=== PATIENT | female | born 1990 | race Caucasian/White ===

== ENCOUNTER 2020-05-17 11:25 | Inpatient (IN) | payer OTHER ==
[2020-05-17 13:00] VITALS: BMI 30.2
[2020-05-17 13:11] LABS: BASO % 0.3 % (0-2.0); EOS % 0.1 % (0-4.5); HEMOGLOBIN 12.2 GM/dL (10.7-15.3); LYMPH % 8.5 % (8-40); MCH 28.7 pg (25.7-33.7); MCHC 33.1 g/dl (32.0-36.0); MEAN CELL VOLUME 86.7 fl (80-96); MEAN PLT VOLUME 10.7 fl (7.5-11.1); MONO % 4.1 % (3.8-10.2); PLATELET COUNT 153 K/MM3 (134-434); RBC 4.27 M/mm3 (3.60-5.2)
[2020-05-17 13:16] LABS: INR 0.89 (0.83-1.09); PROTHROMBIN TIME (PATIENT) 10.5 SEC (9.7-13.0)
[2020-05-17 13:19] LABS: ACTIVATED PTT 26.1 SECONDS (25.2-36.5)
[2020-05-17 13:32] LABS: BLOOD UREA NITROGEN 10.5 mg/dL (7-18); CALCIUM 8.2 mg/dL (8.5-10.1); CREATININE 0.5 mg/dL (0.55-1.3); POTASSIUM 4.2 mmol/L (3.5-5.1)
[2020-05-17] MEDS ORDERED: FENTANYL/BUPIVACAINE/NS/PF - PCEA - 50 ML DISP.SYRIN EP ONE ×4 (13:49→22:06)
[2020-05-17] MEDS ORDERED: FENTANYL/BUPIVACAINE/NS/PF - PCEA - 50 ML DISP.SYRIN EP SCH (14:25)
[2020-05-17] MEDS ORDERED: NALOXONE HCL 0.4 MG/ML VIAL IVPUSH PRN (14:31)
--- NOTE | 2020-05-17 18:48 | HP ---
Past Medical History - Admission Chief Complaint: active labor pain History Source: Patient Limitations to Obtaining History: No Limitations - Past Medical History TRANSITION LEAD: No: Alzheimer's, CVA, Dementia, Migraine, Multiple Sclerosis, Peripheral Neuropathy, Parkinson's, Seizure, Syncope, TIA, Vertigo, Other Cardiovascular: No: AFIB, Aneurysm, Aortic Insufficiency, Aortic Stenosis, CAD, CHF, Deep Vein Thrombosis, HTN, Hyperlipdemia, PR, Mitral Insufficiency, Mitral Stenosis, Murmur, Pulmonary Hypertension, Other Pulmonary: No: Asthma, Bronchitis, Cancer, COPD, O2 Dependent, Pneumonia, Previously Intubated, Pulmonary Embolus, Pulmonary Fibrosis, Sleep Apnea, Other Gastrointestinal: No: Ascites, Cancer, Constipation, Crohn's Disease, Diverticulitis, Diverticulosis, Esophageal Varices, Gastritis, GERD, GI Bleed, Hemorrhoids, Hiatal Hernia, Inflamatory Bowel Disease, Irritable Bowel Disease, Pancreatitis, Peptic Ulcer Disease, Ulcerative Colitis, Other Hepatobiliary: No: Cirrhosis, Cholelithiasis, Cholecystitis, Choledocholit hiasis, Hepatitis A, Hepatitis B, Hepatitis C, Other Renal/: No: Renal Failure, Renal Inusuff, BPH, Cancer, Hematuria, Hemodialysis, Neurogenic Bladder, Renal Calculi, UTI, Other Reproductive: No: Ectopic , Endometriosis, Fibroids, PID, Polycystic Ovary Syndrome, Postmenopausal, Other ...: 1 ...Para: 0 ...Term: 0 ...: 0 ...Spon : 0 ...Induced : 0 ...Living Children: 0 ...Multiple Gestation: 0 ...LMP: 08/11/19 ... Weeks Gestation by Dates: 40.0 ...EDC by Dates: 05/17/20 Heme/Onc: No: Anemia, B12 Deficiency, Bleeding Disorder, Cancer, Current Chemotherapy, Current Radiation Therapy, Hemochromatosis, Hypercoaguable State, Myeloproliferative Synd, Sickle Cell Disease, Sickle Cell Trait, Thrombocytopenia, Other Infectious Disease: No: AIDS, C-Diff, Herpes Zoster, HIV, MRSA, STD's, Tuberculosis, VREF, Other Psych: No: Addictions, Anxiety, Bipolar, Depression, Panic, Psychosis, Schizophrenia, Other Musculoskeletal: No: Bursitis, Chronic low back pain, Hemiparesis, Hemiplegia, Osteoarthritis, Paraplegia, Other Rheumatology: No: Fibromyalgia, Gout, Lupus, Rheumatoid Arthritis, Sarcoidosis, Vasculitis, Other ENT: No: Allergic Rhinitis, Sinusitis, Other Endocrine: No: [place]'s Disease, [place]'s Disease, Diabetes Insipidus, Diabetes Mellitus, Hyperparathyroidism, Hyperthyroidism, Hypothyroidism, Osteopenia, SIADH, Other Dermatology: No: Basal Cell, Cellulitis, Eczema, Melanoma, Psoriasis, Squamous Cell, Other - Past Surgical History Past Surgical History: No: None, AAA Repair, AICD, Amputation, Appendectomy, Arthrosocopy, AV Fistula/Graft, Bariatric Surgery, Breast Biopsy, Bypass, CABG, Carotid Endarterectomy, Cataract Removal, Cholecystectomy, Colectomy, Colonoscopy, Colostomy, Craniotomy, , Cystectomy, Hernia Repair, Hysterectomy, Ileal Conduit, Ileosotomy, Joint Replacement, Kidney Transplant, Laminectomy, Liver Transplant, Mastectomy, Nephrectomy, Oopherectomy, Orchiectomy, Permanent Pacemaker, Prostatectomy, Splenectomy, Stent, Thoracotomy, TURP, Tonsillectomy, Tubal Ligation, Upper Endoscopy, Valve Replacement, Vasectomy, Vein Stripping/Ligation Hx Myomectomy: No Hx Transabdominal Cerclage: No - Advance Directives Advance Directives: Yes: Living Will - Smoking History Smoking history: Never smoked Have you smoked in the past 12 months: No - Alcohol/Substance Use Hx Alcohol Use: No History of Substance Use: reports: None - Social History Usual Living Arrangement: Yes: With Significant Other Do you think of yourself as: Straight/Heterosexual ADL: Independent History of Recent Travel: No Home Medications - Allergies Allergies/Adverse Reactions: Allergies Allergy/AdvReac Type Severity Reaction Status Date / Time No Known Allergies Allergy Verified 05/17/20 12:25 - Home Medications Home Medications: Ambulatory Orders Pnv No.95/Ferrous Fum/Folic AC [ Formula] 1 each PO DAILY 05/17/20 Family Medical History Family History: Denies Review of Systems - Review of Systems Constitutional: reports: No Symptoms Eyes: reports: No Symptoms HENT: reports: No Symptoms Neck: reports: No Symptoms Cardiovascular: reports: No Symptoms Respiratory: reports: No Symptoms Gastrointestinal: reports: No Symptoms Genitourinary: reports: No Symptoms Breasts: reports: No Symptoms Reported Musculoskeletal: reports: No Symptoms Integumentary: reports: No Symptoms Neurological: reports: No Symptoms Endocrine: reports: No Symptoms Hematology/Lymphatic: reports: No Symptoms Psychiatric: reports: No Symptoms Physical Exam - Maternity Vital Signs: Vital Signs Temperature 98.2 F 05/17/20 18:00 Pulse Rate 78 05/17/20 16:30 Respiratory Rate 18 05/17/20 16:30 Blood Pressure 122/75 05/17/20 16:15 O2 Sat by Pulse Oximetry (%) 100 05/17/20 16:30 Constitutional: Yes: Well Nourished, No Distress, Calm Eyes: Yes: WNL, Conjunctiva Clear, EOM Intact HENT: Yes: WNL, Atraumatic, Normocephalic Neck: Yes: WNL, Supple, Trachea Midline Cardiovascular: Yes: WNL, Regular Rate and Rhythm Lungs: Clear to auscultation Breast(s): Yes: WNL - Abdominal Exam/OB Fundal Height: 40 Number of Fetuses: Single Presentation: Vertex Contractions: Yes Regularity: Regular Intensity: Mod/Strong Monitor Mode: External Heart Rate (range): 150 Heart Rate Location: [facility] Category: I Accelerations: Uniform Decelerations: None - Vaginal Exam/OB Vaginal Bleeding: No Speculum Exam: No Dilatation (cm): 3 Effacement (%): 70 Amniotic Membrane Status: Leaking Presentation: Vertex/Position Station: -1 - Physical Exam Musculoskeletal: Yes: WNL Extremities: Yes: WNL Edema: Yes Edema: LUE: 1+, RUE: 1+, LLE: 1+, RLE: 1+ Integumentary: Yes: WNL Deep Tendon Reflex Grade: Normal +2 ...Motor Strength: WNL Psychiatric: Yes: WNL, Alert, Oriented - Labs Lab Results: CBC, BMP 05/17/20 12:45 05/17/20 12:45 Hemorrhage Risk Assessment - Risk Factors Medium Risk Factors: Yes: None High Risk Factors: Yes: None Risk Score: 1 Risk Level: Medium Risk Assessment/Plan for laboring, asking for epidural
--- NOTE | 2020-05-17 18:49 | PN ---
Progress Note (short form) - Note Progress Note: 3 pm, nst reactive, uc q 5 min, 3 cm, 70%, -1, will give epidural
--- NOTE | 2020-05-17 18:50 | PN ---
Progress Note (short form) - Note Progress Note: 630 pm, 4 cm, forbag membrane ruptured, 70%,-1, continue laboring w epidural, and start pitocin
[2020-05-17] MEDS ORDERED: OXYTOCIN 30 UNITS in 0.9% NS 30 UNIT/500 ML INFUS.BAG IVPB SCH (19:00)
[2020-05-17] MEDS ORDERED: ELECTROLYTE-148 SOLN 1,000 ML IV SCH (19:15)
[2020-05-17] MEDS ORDERED: PCA PUMP NR ONE (19:31)
[2020-05-17] MEDS ORDERED: OXYTOCIN 30 UNITS in 0.9% NS 30 UNIT/500 ML INFUS.BAG IVPB ONE (20:00)
[2020-05-17] MEDS ORDERED: BUPIVACAINE HCL/PF 0.25% (2.5MG/ML) 10 ML VIAL ONE (20:21)
[2020-05-17] MEDS ORDERED: LIDO 2%/EPI 1:200000 PRESRVFRE (20 ML SDVIAL) ONE (22:29)
--- NOTE | 2020-05-17 22:34 | PN ---
Progress Note (short form) - Note Progress Note: 1030 pm, still 3 to 4 cm, -1,70%, no change of cervix, still no change, epidural is not working, pt c/o pain, will proceed to c s , for f t progress,
[2020-05-17] MEDS ORDERED: ONDANSETRON 4 MG/2 ML VIAL IVPUSH PRN (22:46)
[2020-05-18] MEDS ORDERED: morphine SULFATE/PF 0.5 MG/ML (2cc Syringe - QUVA) ONE (00:17)
[2020-05-18] MEDS ORDERED: ceFAZolin SODIUM 1 GM VIAL ONE (00:33)
[2020-05-18] MEDS: OXYTOCIN 20 UNITS in 0.9% NS 20 UNIT/1,000 ML INFUS.BAG IV SCH ×2 (00:50→08:00)
--- NOTE | 2020-05-18 01:24 | PN ---
Progress Note (short form) - Note Progress Note: I assisted Dr. Corbett at c/section for mthe entirety of the case.
[2020-05-18] MEDS ORDERED: CITRIC ACID/SODIUM CITRATE 30 ML UNIT-DOSE CUP PO ONE (01:43)
--- NOTE | 2020-05-18 01:43 | OP ---
Operative Note - Note: Operative Date: 05/18/20 Pre-Operative Diagnosis: f t progress Operation: primary lt c s Findings: op Post-Operative Diagnosis: Same as Pre-op Surgeon: Lyndon Corbett Oil Producer: Bryan Byrne Anesthesiologist/DRIER TENDER: Zakia Barrera Anesthesia: Epidural Estimated Blood Loss (mls): 600 (op, no complications ) Operative Report Dictated: Yes
[2020-05-18] MEDS ORDERED: METHYLERGONOVINE MALEATE 0.2 MG/1 ML AMP IM PRN (01:44)
[2020-05-18] MEDS ORDERED: SENNOSIDES/DOCUSATE COMBO (SENNA PLUS) TABLET (UD) PO PRN (01:44)
[2020-05-18] MEDS ORDERED: oxyCODONE HCL 5 MG TABLET PO PRN ×2 (01:44)
[2020-05-18] MEDS ORDERED: OXYTOCIN 20 UNITS in 0.9% NS 20 UNIT/1,000 ML INFUS.BAG IV ONE (03:06)
[2020-05-18] MEDS: IBUPROFEN 800 MG/8 ML IJ IVPB PRN ×2 (08:44→19:08)
[2020-05-18] MEDS: PRENATAL VITAMINS W/ FOLIC ACID TABLET (FP) PO SCH (10:00)
[2020-05-19] MEDS ORDERED: BISACODYL 10 MG SUPP.RECT RC PRN (01:44)
[2020-05-19] MEDS: ACETAMINOPHEN 325 MG TABLET (FP) PO PRN ×3 (07:57→21:04)
[2020-05-19] MEDS: SIMETHICONE 80 MG TAB.CHEW (FP) PO PRN ×3 (07:57→21:04)
[2020-05-19] MEDS: IBUPROFEN 600 MG TABLET (FP) PO PRN ×3 (07:58→21:05)
[2020-05-19 08:45] LABS: BASO % 0.3 % (0-2.0); EOS % 0.5 % (0-4.5); HEMATOCRIT 33.4 % (32.4-45.2); LYMPH % 11.5 % (8-40); MCH 28.4 pg (25.7-33.7); MCHC 32.9 g/dl (32.0-36.0); MEAN CELL VOLUME 86.5 fl (80-96); MEAN PLT VOLUME 9.9 fl (7.5-11.1); MONO % 6.7 % (3.8-10.2); PLATELET COUNT 157 K/MM3 (134-434); RBC 3.86 M/mm3 (3.60-5.2); RDW 13.4 % (11.6-15.6); WHITE BLOOD COUNT 14.1 K/mm3 (4.0-10.0)
[2020-05-19] MEDS: PRENATAL VITAMINS W/ FOLIC ACID TABLET (FP) PO SCH (09:15)
--- NOTE | 2020-05-19 13:16 | PATH ---
Surgical Pathology Report Patient Name: DEVON WELDON [facility]. Rec. #: [id number] /Age/Gender: 1990 (Age: 29) / F Account: [id number] Location: [facility] OBS/DEPUTY COURT CLERK Taken: 05/18/2020 Received: 05/18/2020 Reported: 05/19/2020 Physicians: Lyndon Corbett MD Specimen(s) Received PLACENTA Clinical History , 40 weeks, failure to progress Final Diagnosis PLACENTA: THIRD TRIMESTER PLACENTA WITH MILD ACUTE CHORIOAMNIONITIS AND SUBCHORIONIC FIBRIN DEPOSITION. TRIVASCULAR CORD. Electronically Signed Ly Pang M.D. Gross Description The specimen is received fresh labeled placenta and is a 370 gram, 17.5 x 13.5 x 2.2 cm. placenta with attached membranes and umbilical cord. The attached membranes are kennedy, translucent with focal opacities and insert marginally. The umbilical cord measures 11.5 cm. in length and averages 1 cm. in diameter. The cord inserts eccentrically, 1 cm. to the nearest margin. No true knots or strictures are identified. Cut surface of the umbilical cord reveals 3 vessels. The surface is vu-blue with minimal fibrin deposition and appropriate caliber vessels. The maternal surface is red-brown with focal defects. Sectioning reveals red-brown, spongy parenchyma. No lesions are identified. Billiard Table Assembler sections are submitted in three cassettes as follows: 1- membrane rolls and umbilical cord; 2-3- full thickness sections of placenta. /05/18/2020 saudi/05/18/2020
--- NOTE | 2020-05-19 13:50 | PN ---
Post Progress Note Post Day: 1 Type of Delivery: Primary C/S Vital Signs: Vital Signs Temperature 99.2 F 05/19/20 10:00 Pulse Rate 91 H 05/19/20 10:00 Respiratory Rate 20 05/19/20 10:00 Blood Pressure 121/67 05/19/20 10:00 O2 Sat by Pulse Oximetry (%) 99 05/18/20 02:05 Breast Exam: Yes: Soft Uterus: Yes: Fundus Firm, Fundus below umbilicus, Non-tender Incision: Yes: Dressing dry and intact, Sutures intact Abdomen/GI: Yes: Abdomen soft, Passing flatus, Tolerating PO Lochia: Yes: Serosa Lochia, amount: Small Extremities: Yes: Calves non-tender Perineum: Yes: Intact Activity: Ambulating - Labs Labs: CBC WBC 14.1 K/mm3 (4.0-10.0) H 05/19/20 07:40 RBC 3.86 M/mm3 (3.60-5.2) 05/19/20 07:40 Hgb 11.0 GM/dL (10.7-15.3) 05/19/20 07:40 Hct 33.4 % (32.4-45.2) 05/19/20 07:40 MCV 86.5 fl (80-96) 05/19/20 07:40 MCH 28.4 pg (25.7-33.7) 05/19/20 07:40 MCHC 32.9 g/dl (32.0-36.0) 05/19/20 07:40 RDW 13.4 % (11.6-15.6) 05/19/20 07:40 Plt Count 157 K/MM3 (134-434) 05/19/20 07:40 MPV 9.9 fl (7.5-11.1) 05/19/20 07:40 Absolute Neuts (auto) 11.4 K/mm3 (1.5-8.0) H 05/19/20 07:40 Neutrophils % 81.0 % (42.8-82.8) 05/19/20 07:40 Lymphocytes % 11.5 % (8-40) D 05/19/20 07:40 Monocytes % 6.7 % (3.8-10.2) 05/19/20 07:40 Eosinophils % 0.5 % (0-4.5) D 05/19/20 07:40 Basophils % 0.3 % (0-2.0) 05/19/20 07:40 Nucleated RBC % 0 % (0-0) 05/19/20 07:40 Other Findings, Remarks: doing well, dc pt home tomorrow
--- NOTE | 2020-05-19 13:52 | DS ---
Physical Exam-CERTIFIED MEDICAL ASSISTANT Vital Signs: Vital Signs Temperature 99.2 F 05/19/20 10:00 Pulse Rate 91 H 05/19/20 10:00 Respiratory Rate 20 05/19/20 10:00 Blood Pressure 121/67 05/19/20 10:00 O2 Sat by Pulse Oximetry (%) 99 05/18/20 02:05 Constitutional: Yes: Well Nourished, No Distress, Calm Eyes: Yes: WNL, Conjunctiva Clear, EOM Intact HENT: Yes: WNL, Atraumatic, Normocephalic Neck: Yes: WNL, Supple, Trachea Midline Cardiovascular: Yes: WNL, Regular Rate and Rhythm Respiratory: Yes: WNL, Regular, CTA Bilaterally Gastrointestinal: Yes: WNL, Normal Bowel Sounds, Soft ...Rectal Exam: Yes: WNL Renal/: Yes: WNL Pelvis: Yes: WNL External Genitalia: Yes: Normal Internal Exam Deferred: Yes Vaginal Exam: Yes: Normal Cervix: Yes: Normal Uterus: Yes: Normal ....Post : Yes: Uterus firm, Uterus non-tender Breast(s): Yes: WNL Musculoskeletal: Yes: WNL Extremities: Yes: WNL Edema: Yes Integumentary: Yes: WNL Wound/Incision: Yes: Clean/Dry, Well Approximated Neurological: Yes: WNL, Alert, Oriented ...Motor Strength: WNL Psychiatric: Yes: WNL, Alert, Oriented Labs: CBC, BMP 05/19/20 07:40 05/17/20 12:45 Delivery - Delivery Section: Primary Type of Anesthesia: Epidural, Spinal Episiotomy/Laceration: None EBL (cc): 600 Delivery, Single - Stages of Labor Date 1st Stage Initiatied: 05/17/20 Time 1st Stage Initiated: 07:00 Date 2nd Stage Initiated: 05/17/20 Time 2nd Stage Initiated: 14:30 Date of Delivery: 05/18/20 Time of Delivery: 00:46 Time Placenta Delivered: 00:47 - Condition of Psychiatric Rn/Art Editor Present: Yes Name: Breanne Jones Gender: Female Weight: 2.75 kg Position: OP Total Hours ROM (Hrs/Mins): 16 hrs 47 mins - 1 Minute Total Score: 9 5 Minutes Total Score: 9 - Feeding Plan Initial Plan: Exclusive throughout hospitalization Discharge Summary Problems reviewed: Yes Reason For Visit: RUPTURE OF MEMBRANE Procedures: Principal: primary lt c s Other Procedures: none Hospital Course: uneventful Condition: Good - Instructions Diet, Activity, Other Instructions: Physical activity Resume your normal everyday activity as tolerated no heavy lifting or exercise until seen by your surgeon. You may walk unlimited judith of and climb stairs. You may resume driving the car when you feel safe and comfortable behind the wheel. No sexual activity as instructed. Wound care If you have a bandage, leave it on, and keep dry for 48-72 hours. After that time discard the outer bandage. If they are tapes on the skin under the out of bandage leave them in place. They will peel off in the next 7 to 10 days. Do Not Peel them off. You may shower the day after surgery. If there are tapes present on the skin, you may shower over them. Diet There are no dietary restrictions. Eat healthy, high-fiber foods. Drink 6 to 8 glasses of liquid each day. This will assist in keeping your bowels are regular. Pain management You may take Tylenol or acetaminophen or Ibuprofen (for example, Motrin, Advil etc.) from my pain prescription medication is ordered should be taken as prescribed for moderate to severe pain. Call MD for any of the following: call dr minor for 2 weeks appointment Severe pain not relieved by medication Fever of 101 or higher Excessive bleeding or drainage on dressing Inability to urinate Disposition: HOME - Home Medications Comprehensive Discharge Medication List: Ambulatory Orders Pnv No.95/Ferrous Fum/Folic AC [ Formula] 1 each PO DAILY 05/17/20 Prescription Drug Monitoring Program (I-STOP) results: I-STOP reviewed and no issues identified
--- NOTE | 2020-05-19 20:53 | OP ---
DATE OF OPERATION: 05/18/2020 PREOPERATIVE DIAGNOSIS: Failure to progress. POSTOPERATIVE DIAGNOSIS: Occiput posterior presentation. PROCEDURE: Primary low transverse section. SURGEON: Lyndon Corbett MD PASSEMENTERIE WORKER: Bryan Byrne MD ANESTHESIOLOGIST: ADALBERTO Becerra ANESTHESIA: Epidural anesthesia and spinal anesthesia. INDICATIONS: This is a 29-year-old female patient who came in complaining about labor since about May 17 for the whole 24 hours already. So, patient called and patient was seen at 6 o'clock in the morning to al on May 17 and patient was asked to be evaluated in the office. So, about 10 o'clock/10:30, patient was checked. Patient was about 2-3 cm, 70%, and -2. Patient was in pain every 5-10 minutes and patient's pain level was 10/10; so, was sent to the hospital for evaluation and possible admission. Patient also complained about rupture of membranes and leaking fluid, the mucus plug. So, patient was examined and could not completely rule out a rupture of the membranes. So, patient was admitted and sent into the hospital. The hospital was busy, so finally got a bed around 3 o'clock. So, patient at that time was about 3 cm. At that time, patient was checked and patient was asking for an epidural. So, epidural was given to the patient about an hour to 2 hours later after IV hydration. So, 5:00 or 6 o'clock, patient was about 3 cm. So, patient was checked again about 6:30. She was about 3-4 cm still; so, patient had labor and epidural already. So, around 10:30, patient's epidural was wearing off, a lot of pain. The patient's cervix was rechecked again, about still 4 cm, and at this time, the decision was made that patient still did not progress anything for more than 12 hours. So, the decision was made to take the patient for primary low transverse section. Patient was placed on the operating table in supine position. Patient already had an epidural. However, epidural was not working very well. So, patient had to re-do the spinal anesthesia. When the spinal anesthesia was in, the patient was comfortable, and the patient was taken to the OR. Patient was placed on the operating table in supine position. Patient's abdomen and pelvis were prepped and draped in the usual sterile manner. Pfannenstiel incision was made. Incision was made through skin and subcutaneous tissue until the fascia was nicked in the midline. The fascia extended bilaterally. Intraperitoneal cavity was entered. Bladder flap was not created. Low-transverse segment was entered. Baby delivered from the LOT position. Baby was handed over to physician support coordinator after umbilical cord doubly clamped and cut. No cord blood gas was obtained. Placenta was removed. Uterus was closed in single layer, first layer interlocking Vicryl sutures. Good hemostasis. Both the gutters were cleaned. Both ovaries, fallopian tubes, and uterus were within normal limits. No complications. Tolerated the procedure well. Draining clear urine. Blood loss was about 600 mL. The baby was in OP presentation. Other than that, no complications. The fascia was closed. Skin was closed. She was transferred to recovery room in stable condition. MD ES [id number]
[2020-05-20] MEDS: IBUPROFEN 600 MG TABLET (FP) PO PRN (08:59)
[2020-05-20] MEDS: ACETAMINOPHEN 325 MG TABLET (FP) PO PRN (08:59)
[2020-05-20] MEDS: SIMETHICONE 80 MG TAB.CHEW (FP) PO PRN (09:01)
[2020-05-20] MEDS: PRENATAL VITAMINS W/ FOLIC ACID TABLET (FP) PO SCH (09:02)
[2020-05-20 10:13] VITALS: BP 121/74; PULSE 72; TEMP 98.8
== END 2020-05-20 13:21 | disposition home or self-care (01) | DRG 540 ==
LOC: JLDR 11:25 → J3W 05-18 03:17
PROVIDERS: ADMIT Obstetrics & Gynecology; ATTEND Obstetrics & Gynecology
PROC: 10D00Z1 Extraction of Products of Conception, Low, Open Approach (ICD-10-PCS; principal; 2020-05-18)
DX: O62.0 Primary inadequate contractions (principal); O48.0 Post-term pregnancy; O64.0XX0 Obstructed labor due to incomplete rotation of fetal head, not applicable or unspecified; O77.0 Labor and delivery complicated by meconium in amniotic fluid; Z3A.40 40 weeks gestation of pregnancy; Z37.0 Single live birth
CPT/HCPCS: 36415; 80048; 85025; 85610; 85730; 86780; 86850; 86900; 86901; 87389; 88307-TC; U0003